=== PATIENT | female | born 1995 | race Two or more races ===

== ENCOUNTER 2023-01-21 22:02 | Emergency (ER) | payer OTHER ==
[~2023-01-21] VITALS: Ht 152.4 cm; Wt 83.5 kg
[2023-01-21] MEDS ORDERED: ACET1TAB23 PO (22:44)
[2023-01-21] MEDS ORDERED: OFLO5DRO5 LEFT EAR (22:44)
--- NOTE | 2023-01-21 22:53 | NUR ---
Patient discharged to home in stable condition. Written and verbal after care instructions given. Patient verbalizes understanding of instructions. Stressed follow up or return to ER for worsening s/s. Patient walkd out with staeady gait.
[2023-01-21 22:54] VITALS: BP 126/78
== END 2023-01-21 22:54 | disposition home or self-care (01) ==
LOC: ER 22:02
DX: H60.92 Unspecified otitis externa, left ear (principal); Z79.2 Long term (current) use of antibiotics; Z79.899 Other long term (current) drug therapy
CPT/HCPCS: A4663